=== PATIENT | male | born 1935 | race Caucasian/White ===

== ENCOUNTER 2019-04-19 13:02 | Outpatient (RCR) | payer MEDICARE ==
[~2019-04-19 13:02] MED LIST: ADVIL200 MG PO; ASPIR-LOW81 MG PO; ASPIRIN E.C. 8181 MG PO; IBUPROFEN 200200 MG PO; MVI; NEXIUM 20MG20 MG PO; NEXIUM40 MG PO; VITA-BEE WITH C1 TAB PO
== END 2019-07-18 ==
LOC: WSPT
DX: Z73.3 Stress, not elsewhere classified (principal)